=== PATIENT | female | born 1945 | race Caucasian/White ===

== ENCOUNTER 2018-03-30 13:04 | Emergency (ER) | payer MEDICARE ==
--- NOTE | 2018-03-30 14:24 | ER Document Report ---
ED Medical Screen (RME) - General Chief Complaint: Chest Pain Stated Complaint: DIZZY,VOMITING,CHEST PAIN Time Seen by Provider: 03/30/18 14:19 Notes: Patient states that she was referred here today by her family practice doctor. She states she was having some chest pain yesterday and went to see her family practice doctor today her family practice doctor referred her here to the emergency department for further evaluation. Patient states she has no chest pain currently but does have some headache. Patient states her last stress test was approximately 2 years ago and was normal. She states she had a pacemaker placed in 2016 in [facility]. She states this was placed due to low oxygen saturations. TRAVEL OUTSIDE OF THE [place] IN LAST 30 DAYS: No - Related Data Allergies/Adverse Reactions: No Known Allergies Allergy (Verified 03/30/18 13:59) Past Medical History - Social History Chew tobacco use (# tins/day): No Frequency of alcohol use: None Drug Abuse: None Renal/ Medical History: Denies: Hx Peritoneal Dialysis Physical Exam - Vital signs Vitals: Temp Pulse Resp BP Pulse Ox 98.4 F 86 16 130/71 H 98 03/30/18 13:36 03/30/18 13:36 03/30/18 13:36 03/30/18 13:36 03/30/18 13:36 Course - Vital Signs Vital signs: Temp Pulse Resp BP Pulse Ox 98.4 F 86 16 130/71 H 98 03/30/18 13:36 03/30/18 13:36 03/30/18 13:36 03/30/18 13:36 03/30/18 13:36 Doctor's Discharge - Discharge Referrals: KERA TATE PA-C [Primary Care Provider] - Follow up as needed
[2018-03-30 14:52] LABS: ABSOLUTE EOSINOPHILS # (AUTO) 0.1 10^3/uL (0.0-0.6); ABSOLUTE LYMPHOCYTES (AUTO) 1.7 10^3/uL (0.5-4.7); ABSOLUTE MONOCYTES (AUTO) 0.4 10^3/uL (0.1-1.4); ABSOLUTE NEUT (AUTO) 2.1 10^3/uL (1.7-8.2); BASOPHILS % (AUTO) 0.9 % (0-2); EOSINOPHILS % (AUTO) 2.6 % (0-6); HEMATOCRIT 37.8 % (36.0-47.0); HEMOGLOBIN 12.7 g/dL (12.0-15.5); LYMPHOCYTES % (AUTO) 38.5 % (13-45); MEAN CORPUSCULAR HEMOGLOBIN 29.2 pg (27.0-33.4); MEAN CORPUSCULAR HGB CONC 33.5 g/dL (32.0-36.0); MEAN CORPUSCULAR VOLUME 87 fl (80-97); PLATELET COUNT 202 10^3/uL (150-450); RED BLOOD COUNT 4.34 10^6/uL (3.72-5.28); RED CELL DISTRIBUTION WIDTH 12.6 % (11.5-14.0); TOTAL CELLS COUNTED % (AUTO) 100 %; WHITE BLOOD COUNT 4.4 10^3/uL (4.0-10.5)
[2018-03-30 15:04] LABS: ALANINE AMINOTRANSFERASE 30 U/L (9-52); ALBUMIN 4.4 g/dL (3.5-5.0); ALKALINE PHOSPHATASE 53 U/L (38-126); ANION GAP 9 (5-19); ASPARTATE AMINO TRANSFERASE 30 U/L (14-36); BILIRUBIN,DIRECT 0.2 mg/dL (0.0-0.4); BILIRUBIN,TOTAL 0.6 mg/dL (0.2-1.3); BLOOD UREA NITROGEN 15 mg/dL (7-20); CALCIUM 9.3 mg/dL (8.4-10.2); CARBON DIOXIDE 33 mmol/L (22-30); CHLORIDE 105 mmol/L (98-107); GLUCOSE 142 mg/dL (75-110); POTASSIUM 4.5 mmol/L (3.6-5.0); SODIUM 146.9 mmol/L (137-145); TOTAL PROTEIN 7.7 g/dL (6.3-8.2)
--- NOTE | 2018-03-30 16:12 | RADIOLOGY REPORT (SQ) ---
EXAM DESCRIPTION: CHEST 2 VIEWS COMPLETED DATE/TIME: 03/30/2018 2:49 pm REASON FOR STUDY: cp COMPARISON: None. EXAM PARAMETERS: NUMBER OF VIEWS: two views TECHNIQUE: Digital Frontal and Lateral radiographic views of the chest acquired. RADIATION DOSE: NA LIMITATIONS: none FINDINGS: LUNGS AND PLEURA: No opacities, masses or pneumothorax. No pleural effusion. MEDIASTINUM AND HILAR STRUCTURES: No masses or contour abnormalities. HEART AND VASCULAR STRUCTURES: Heart normal size. No evidence for failure. BONES: No acute findings. HARDWARE: Pacemaker. OTHER: No other significant finding. IMPRESSION: NO ACUTE RADIOGRAPHIC FINDING IN THE CHEST. TECHNICAL DOCUMENTATION: JOB ID: [id number] [employer]- All Rights Reserved Reading location - IP/workstation name: [email or web address]
[2018-03-30] MEDS ORDERED: MAG HYDROX/AL HYDROX/SIMETH SUSP 30 ML UDCUP PO ONE (16:38)
[2018-03-30] MEDS ORDERED: LIDOCAINE 2% VISCOUS SOLN 20 ML UDCUP PO ONE (16:38)
[2018-03-30] MEDS ORDERED: METOCLOPRAMIDE HCL ORAL SOLN 10 MG/10 ML UDCUP PO ONE (16:38)
--- NOTE | 2018-03-30 18:10 | ER Document Report ---
ED General - General Chief Complaint: Chest Pain Stated Complaint: DIZZY,VOMITING,CHEST PAIN Time Seen by Provider: 03/30/18 14:19 TRAVEL OUTSIDE OF THE [place] IN LAST 30 DAYS: No - HPI Patient complains to provider of: Chest pressure nausea Notes: Patient coming in for evaluation as pressure and nausea. Patient states during the night prior to arrival. Patient states was seen by PCP recommended come to the ER for further evaluation. Patient states she has a pacemaker that was placed due to "not getting enough oxygen". Otherwise patient's states that she is on omeprazole for acid reflux. Patient states after seeing her PCP today she did try to eat and became nauseous with increase of her pain. Patient states she was trying to eat chicken nuggets. Denies any vomiting denies any diarrhea. Denies any denies any trauma. Resting comfortably upon my evaluation. Patient states negative stress test approximately 2 years ago no other past cardiac - Related Data Allergies/Adverse Reactions: No Known Allergies Allergy (Verified 03/30/18 13:59) Past Medical History - Social History Smoking Status: Never Smoker Chew tobacco use (# tins/day): No Frequency of alcohol use: None Drug Abuse: None Family History: Reviewed & Not Pertinent Patient has suicidal ideation: No Patient has homicidal ideation: No Renal/ Medical History: Denies: Hx Peritoneal Dialysis Review of Systems - Review of Systems Constitutional: No symptoms reported EENT: No symptoms reported Cardiovascular: Chest pain Respiratory: No symptoms reported Gastrointestinal: Nausea Genitourinary: No symptoms reported Female Genitourinary: No symptoms reported Musculoskeletal: No symptoms reported Skin: No symptoms reported Hematologic/Lymphatic: No symptoms reported Neurological/Psychological: No symptoms reported -: Yes All other systems reviewed and negative Physical Exam - Vital signs Vitals: Temp Pulse Resp BP Pulse Ox 98.4 F 86 16 130/71 H 98 03/30/18 13:36 03/30/18 13:36 03/30/18 13:36 03/30/18 13:36 03/30/18 13:36 Interpretation: Normal - General General appearance: Appears well, Alert - HEENT Head: Normocephalic, Atraumatic Eyes: Normal Pupils: PERRL - Respiratory Respiratory status: No respiratory distress Chest status: Nontender Breath sounds: Normal Chest palpation: Normal - Cardiovascular Rhythm: Regular Heart sounds: Normal auscultation Murmur: No - Abdominal Inspection: Normal Distension: No distension Bowel sounds: Normal Tenderness: Nontender Organomegaly: No organomegaly - Back Back: Normal, Nontender - Extremities General upper extremity: Normal inspection, Nontender, Normal color, Normal ROM , Normal temperature General lower extremity: Normal inspection, Nontender, Normal color, Normal ROM , Normal temperature, Normal weight bearing. No: Deja's sign - Neurological Neuro grossly intact: Yes Cognition: Normal Orientation: AAOx4 Leanne Coma Scale Eye Opening: Spontaneous Leanne Coma Scale Verbal: Oriented [place] Coma Scale Motor: Obeys Commands Leanne Coma Scale Total: 15 Speech: Normal Motor strength normal: LUE, RUE, LLE, RLE Sensory: Normal - Psychological Associated symptoms: Normal affect, Normal mood - Skin Skin Temperature: Warm Skin Moisture: Dry Skin Color: Normal Course - Re-evaluation Re-evalutation: 03/30/18 22:32 The patient has atypical chest pain as the patient's chest pain is not suggestive of pulmonary embolus, cardiac ischemia, aortic dissection, or other serious etiology. Given the extremely low risk of these diagnoses further testing and evaluation for these possibilities does not appear to be indicated at this time. The patient has been instructed to return if the symptoms worsen or change in any way. Patient did receive relief of her chest pain after GI cocktail. More likely patient has underlying GI cause of her chest pressure. Patient has a heart score less than 3 encouraged follow-up with PCP for evaluation. - Vital Signs Vital signs: Temp Pulse Resp BP Pulse Ox 98.1 F 75 18 119/61 96 03/30/18 18:23 03/30/18 18:23 03/30/18 18:23 03/30/18 18:23 03/30/18 18:23 - Laboratory Result Diagrams: 03/30/18 14:21 03/30/18 14:21 Laboratory results interpreted by me: 03/30/18 14:21 Sodium 146.9 H Carbon Dioxide 33 H Glucose 142 H Discharge - Discharge Clinical Impression: Nausea Chest pain, unspecified Qualifiers: Chest pain type: unspecified Qualified Code(s): R07.9 - Chest pain, unspecified Condition: Good Disposition: HOME, SELF-CARE Instructions: Chest Wall Pain ([facility]), Chest Pain of Unclear Cause ([facility]), Reflux Disease (GERD) ([facility]) Additional Instructions: Your EKG and laboratory studies not show any signs of cardiac ischemia or cardiac damage no signs of heart attack. Chest x-ray is also negative. With your symptoms getting better with a GI cocktail do believe that your pain chest is due to acid reflux. Recommend to continue your acid reducing medication and omeprazole. You may also take the Zofran as prescribed for any nausea highly recommend she follow-up with your primary care physician next 3-5 days return to ER symptoms worsen. Please eat a bland diet for the next few days avoid any food that is fried or greasy Prescriptions: Ondansetron [Zofran Odt] 4 mg PO Q6 PRN #30 tab.rapdis PRN Reason: For Nausea/Vomiting Referrals: KERA TATE PA-C [Primary Care Provider] - Follow up in 3-5 days
[2018-03-30 18:25] VITALS: BP 119/61
--- NOTE | 2018-03-30 22:24 | EKG REPORT ---
SEVERITY:- ABNORMAL ECG - SINUS RHYTHM PROBABLE INFERIOR INFARCT, OLD CONSIDER POSTERIOR WALL INVOLVEMENT : Confirmed by: Bouchra Molina 30-Mar-2018 22:24:13
== END 2018-03-30 18:25 | disposition home or self-care (01) ==
LOC: ER 13:04
DX: R07.9 Chest pain, unspecified (principal); R11.2 Nausea with vomiting, unspecified; R42 Dizziness and giddiness; Z95.0 Presence of cardiac pacemaker
CPT/HCPCS: 93005; 99285; 36415; 85025; 80053; 84484; 71046; 93010; J3490; A9270